=== PATIENT | male | born 1980 | race Caucasian/White ===

== ENCOUNTER 2019-01-09 18:59 | Emergency (ER) | payer MEDICAID ==
[~2019-01-09] VITALS: Ht 177.8 cm; Wt 59.2 kg
[2019-01-09 19:05] VITALS: BP 124/74
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
[2019-01-09] MEDS ORDERED: bacitracin 15gm ointment TP ONE (20:40)
[2019-01-09] MEDS ORDERED: amox tr/potassium clavulanate 875/125mg TAB PO ONE (20:40)
[2019-01-09] MEDS ORDERED: AMOX-422 PO (20:42)
== END 2019-01-09 21:10 | disposition home or self-care (01) ==
LOC: ER 18:59
DX: S61.011A Laceration without foreign body of right thumb without damage to nail, initial encounter (principal); L03.113 Cellulitis of right upper limb; Z79.899 Other long term (current) drug therapy; Y04.0XXA Assault by unarmed brawl or fight, initial encounter; Y93.89 Activity, other specified; Y92.89 Other specified places as the place of occurrence of the external cause; Y99.8 Other external cause status
CPT/HCPCS: 73130; 99283